=== PATIENT | female | born 1955 | race Caucasian/White ===

== ENCOUNTER 2016-08-24 10:52 | Outpatient (CLI) | payer OTHER ==
--- NOTE | 2016-08-24 12:27 | DIAGNOSTIC IMAGING REPORT ---
PROCEDURE: XR KNEE 3 VIEWS - LEFT INDICATION: KNEE JOINT PX TECHNIQUE: Four views. COMPARISON: None. FINDINGS: No fracture or dislocation. Mild spur formation of the medial and lateral compartments. Moderate patellofemoral compartment degenerative change. Small effusion. IMPRESSION: 1. Osteoarthritic changes, most prominent involving the patellofemoral compartment 2. Small effusion
== END 2016-08-24 23:00 | disposition home or self-care (01) ==
LOC: XR SRH 10:52
DX: M17.12 Unilateral primary osteoarthritis, left knee (principal); M25.462 Effusion, left knee